=== PATIENT | male | born 1965 ===

== ENCOUNTER 2025-03-15 09:00 | Outpatient (AMB) | payer OTHER, SELFPAY ==
--- NOTE | 2025-03-15 09:28 | A.OFFVIS_ITS ---
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 His problem started in feet few years ago, about 7-10 years ago when he saw a automotive sales representative. During last year he started noticing sensitivity or discomfort in his fingers when he was using it to do things. Sometime it was in the thumb and index finger area and sometime in the 5th and 4th digit. There was no significant neck or back pain. His recent fasting blood sugar was 117. He denied any significant alcohol use. Many years ago he developed an odd feeling in his feet like he was walking on something or there was something in his sock but there was nothing there. [facility] Medical History (Updated 03/15/25 @ 09:41 by Grover Aguilera MD) Pain in left finger(s) Pain in right finger(s) Tingling of both feet Colon polyp Hypertension BPH (benign prostatic hyperplasia) Family History (Updated 03/10/25 @ 08:02 by Sandy Anderson SCHEDULING REPRESENTATIVE) Father Colon cancer Maternal Aunt Colon cancer Review of Systems Const Details: Constitutional:?No fever, chills, fatigue, weight loss, or night sweats. HEENT:?No headache, vision changes, hearing loss, nasal congestion, sore throat. Cardiovascular:?No chest pain, palpitations, orthopnea, PND, or leg swelling. Respiratory:?No cough, shortness of breath, wheezing, or hemoptysis. Gastrointestinal:?No nausea, vomiting, abdominal pain, diarrhea, or constipation. Genitourinary:?No dysuria, frequency, incontinence, or hematuria. Musculoskeletal:?No joint pain, stiffness, weakness, or muscle aches. Neurological:? Numbness tingling and discomfort in hands and feet Psychiatric:?No anxiety, depression, mood swings, sleep disturbance, or hallucinations. Endocrine:?No heat/cold intolerance, polydipsia, polyuria, or hair/skin changes. Hematologic/Lymphatic:?No easy bruising, bleeding, or lymphadenopathy. Integumentary (Skin):?No rash, lesions, itching, or color changes. Allergic/Immunologic:?No seasonal allergies, hives, or recurrent infections. Physical Exam Neuro Other: Mental Status: Alert and oriented to person, place, and time. Normal attention. Normal spontaneous speech, fluency, and comprehension. No obvious issues with mood and memory. Affect is appropriate. Cranial Nerves: CN II: Visual georges full to confrontation, visual acuity intact. CN III, IV, : Pupils equal, round, reactive to light and accommodation. Extraocular movements are normal. CN V: Facial sensation is normal. CN VII: Facial movements symmetrical. CN VIII: Hearing intact to bedside conversation is normal. CN IX, X: Palate elevates symmetrically. CN XI: Shoulder shrug and head turn symmetrical. CN XII: Tongue midline without atrophy or fasciculations. Motor: Bulk and tone normal in all extremities. No significant muscle weakness in arms and legs. No drift. Reflexes: Deep tendon reflexes 1+ and symmetric. Plantar response down-going bilaterally. Coordination: [id number]-[id number] and ogwv-on-cuvl testing normal. No dysmetria. Gait and Station: No obvious gait abnormality. No ataxia or instability. Sensory: Intact to light touch, pinprick, and vibration. Romberg is negative. Extrapyramidal: Full facial expressions and blinking. No rigidity. Movements are appropriate with no tremor or abnormality. Speech: Normal; no dysarthria or tremor. Assessment & Plan Assessment & Plan (1) Peripheral neuropathy: Comment: Labs in [facility] in January 2025: B12, IF OK. 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 Rec: a: EMG/NCS arms and a leg Orders: Orders NE nerve conduction velocity Today G62.9 - Polyneuropathy, unspecified NE electromyogram (EMG) Today G62.9 - Polyneuropathy, unspecified Coding Level of Care Code Tele New Pt Level 4 (97510) Diagnoses Peripheral polyneuropathy G62.9 Peripheral neuropathy type: polyneuropathy, unspecified
--- OUTSIDE RECORDS SUMMARY | 2025-03-15 09:40 | XMS_ITS | Clinical Summary ---
Author Organization [facility] Address [address] [place] [address] Care Team Providers Care Packer Fuser Name Role Phone Unavailable Primary Care Provider Unavailabl e Social History Tobacco Use Types Packs/Day Years Used Date Smoking Tobacco: Never Assessed Sex and Gender Information Value Date Recorded Sex Assigned at Not on file Gender Identity Not on file Sexual Orientation Not on file Job Start Date Occupation Industry Not on file Not on file Not on file Plan of Treatment Health Maintenance Due Date Last Done Comments Hepatitis C Screening 1964 COVID-19 Vaccine (#1) 06/01/1965 Depression Screening 1976 Preventative Health Evaluation 1982 DTap / Tdap / Td (1 - Tdap) 12/01/1983 Colon Cancer Screening (Colonoscopy) 2009 Shingrix-Zoster Vaccine (1 of 2) 2014 Influenza Vaccine (#1) 2025 RSV Adult > 60+ Yrs or Pregn ant (1 - 1-dose 75+ series) 12/01/2039 Hepatitis B Vaccines Aged Out No long er eligible based on patient's age to complete this topic Pneumococcal Vaccine Aged Out No long er eligible based on patient's age to complete this topic RSV Ped < 20 months Aged Out No longe r eligible based on patient's age to complete this topic
--- OUTSIDE RECORDS SUMMARY | 2025-03-15 09:40 | XMS_ITS | Encounter Summary ---
Author Organization [facility] Address [address] [place] [phone] Phone Care Team Providers Care Millroom Supervisor Name Role Phone Grover Gregory MD Primary Care Provider [phone] Encounter Details Date Type Department Care Team ([facility] st Contact Info) Description 03/21/2024 Procedure Pass OR Admitting Dept - Virtual Department [address] [place] [address] Social History Tobacco Use Types Packs/Day Years Used Date Smoking Tobacco: Never Smokeless Tobacco: Never Alcohol Use Standard Drinks/Week Comments Yes 2 (1 standard drink = 0.6 oz pur e alcohol) Education Answer Date Recorded Are you interested in more education? Not on emi e 12/14/2022 Are you concerned about learning? Not on file 12/14/2022 No 12/14/2022 No 12/14/2022 Transportation Answer Date Recorded Has the lack of transportati on kept you from medical appointments or from getting medications? No 03/20/2024 Digital Access Answer Date Recorded No 01/12/2023 No 01/12/2023 Reliable internet access at home? Not on file 01/12/2023 Device with a working camera? Not on file Intimate Partner Violence Answer Date R ecorded Are you denied basic needs s uch as food, clothing, or medical care? No 03/19/2024 In the past 12 months have y ou been in a relationship with a person who hurts, threatens, or tries to control you? No 03/19/2024 Are you denied basic needs s uch as food, clothing, or medical care? No 03/19/2024 In the past 12 months have y ou been in a relationship with a person who hurts, threatens, or tries to control you? No 03/19/2024 Sex and Gender Information Value Date Recorded Sex Assigned at Male 03/19/2024 4:06 PM EDT Legal Sex Male 10:35 AM EDT Gender Identity Male 03/19/2024 4:06 PM EDT Sexual Orientation Straight 03/19/2024 4: 06 PM EDT documented as of this encounter Plan of Treatment Not on file documented as of this encounter Visit Diagnoses Not on filedocumented in this encounter Care Teams Millroom Supervisor Relationship Specialty Start Date End Date Grover Gregory MD [address] [place] [address] PCP - General Internal Medicine 04/29/19 documented as of this encounter Additional Source Comments The information contained in this document represents components of the legal health record. It is not the complete legal health record.[facility]
--- OUTSIDE RECORDS SUMMARY | 2025-03-15 09:40 | XMS_ITS | Clinical Summary ---
Author Organization [facility] Facility Address [address] [place] [id number] Care Team Providers Care Wet Silk Hanger Name Role Phone Grover Gregory MD Primary Care Provider [phone] Allergies No known active allergies Medications cholecalciferol (VITAMIN D-3) 25 MCG (1000 UT) tablet Take 1,000 Units by mouth in the morning. Active Magnesium Ascorbate powder 1 (one) time each day Active finasteride (PROSCAR) 5 MG tablet Take 5 mg by mouth in the morning. Active escitalopram (Lexapro) 10 MG tablet Take 1 tablet (10 mg total) by mouth 1 (one) time each day 90 tablet 3 10/19/2021 Active Active Problems Problem Noted Date Diagnosed Date Elevated blood-pressure read ing without diagnosis of hypertension 10/19/2021 Abdominal pain 10/18/2021 Adult health examination 10/18/2021 Alopecia 10/18/2021 Body mass index 30+ - obesity 10/18/2021 Essential hypertension 10/18/2021 Generalized anxiety disorder 10/18/2021 Lower urinary tract symptoms due to benign prostatic hypertrophy 10/18/2021 Mixed hyperlipidemia 10/18/2021 Skin sensation disturbance 10/18/2021 Family History Medical History Relation Comments Colon cancer Father Diabetes Mother Relation Status Comments Father Mother Alive Social History Tobacco Use Types Packs/Day Years Used Date Smoking Tobacco: Never Smokeless Tobacco: Never Alcohol Use Standard Drinks/Week Comments Yes 0 (1 standard drink = 0.6 oz pur e alcohol) social drinker Sex and Gender Information Value Date Recorded Sex Assigned at Not on file Legal Sex Male 4:59 PM EST Gender Identity Not on file Sexual Orientation Not on file Last Filed Vital Signs Vital Sign Reading Time Taken Comments Blood Pressure 130/78 10/19/2021 3:49 PM EST Pulse 76 10/19/2021 3:49 PM EST Temperature - - Respiratory Rate - - Oxygen Saturation 96% 10/19/2021 3:49 PM EST Inhaled Oxygen Concentration - - Weight 74.8 kg (165 lb) 10/19/2021 3:49 PM EST Height 175.3 cm (5' 9 ) 10/19/2021 3:49 PM EST Body Mass Index 24.37 10/19/2021 3:49 PM EST Plan of Treatment Health Maintenance Due Date Last Done Comments Colorectal Cancer Screening: Annual FOBT 2013 Colorectal Cancer Screening: Colonoscopy 2013 Colorectal Cancer Screening: Sigmoidoscopy 2013 Pneumococcal Vaccine: 50+ Ye ars (1 of 1 - PCV) 2014 Influenza Vaccine (#1) 2025 Hepatitis B Vaccine Aged Out No longe r eligible based on patient's age to complete this topic Insurance [facility] Care Teams Wet Silk Hanger Relationship Specialty Start Date End Date Grover Gregory MD [address] [place] [id number] PCP - General Internal Medicine 10/29/21
--- OUTSIDE RECORDS SUMMARY | 2025-03-15 09:40 | XMS_ITS ---
Author Name [facility] Organization Unknown Care Team Organization Name Specialty Phone Email [facility] 12/24/2022 024
--- OUTSIDE RECORDS SUMMARY | 2025-03-15 09:40 | XMS_ITS | Patient Health Record ---
Author Organization [facility] Address [address], [place] [id number] Care Team Providers Care Painter Supervisor Name Role Phone NAM RUIZ Primary Care Provider EFRA OCASIO RESULTS Component Value Reference Range Notes Prothrombin Time (PT)-[id number] Reviewed date:09/02/2024 08:37:44 AM Interpretation: Performing Lab:[facility], [facility], Phone - [phone], Director - Karel Notes/Report: INR 1.0 0.9-1.2 Reference interval is for non-anticoagulated patients. . Suggested INR therapeutic range for Vitamin K antagonist therapy: Standard Dose (moderate intensity therapeutic range): 2.0 - 3.0 Higher intensity therapeutic range 2.5 - 3.5 Prothrombin Time 10.9 9.1-12.0 sec EKG Reviewed date:01/27/2025 04:22:23 PM Interpretation: Performing Lab: Notes/Report: ECGDiastolicBP ECGHr ECGPRInterval ECGPWaveAxis ECGQRSDuration ECGQrsWaveAxis ECGQTcInterval ECGQTInterval ECGSystolicBP ECGTWaveAxis RR_DiastolicBP RR_MaxRRInterval RR_MeanHR RR_MeanRRInterval RR_MinRRInterval RR_NumBeats RR_NumNormalBeats RR_SystolicBP Hemoglobin [id number] Reviewed date:12/16/2024 01:56:15 PM Interpretation: Performing Lab:[facility], [facility] [place], Phone - [phone], Director - Jodry Notes/Report: Hemoglobin A1c 5.6 4.8-5.6 % . Prediabetes: 5.7 - 6.4 Diabetes: >6.4 Glycemic control for adults with diabetes: <7.0 Vitamin [id number] Reviewed date:02/11/2025 08:19:05 AM Interpretation: Performing Lab:[address], Phone - [phone], Karel Notes/Report: Vitamin B12 >2000 232-1245 pg/mL Lyme Disease Serology w/Refl ex-[id number] Reviewed date:03/08/2025 08:09:48 AM Interpretation: Performing Lab:[address], Phone - [phone], [facility]Report: Lyme Total Antibody ALEXIS Negative Negative Lyme antibodies not detected. Reflex testing is not indicated. No laboratory evidence of infection with B. burgdorferi (Lyme disease). Negative results may occur in patients recently infected (less than or equal to 14 days) with B. burgdorferi. If recent infection is suspected, repeat testing on a new sample collected in 7 to 14 days is recommended. Lyme, Line Blot, Serum-[id number] 0 Reviewed date:03/07/2025 03:19:55 PM Interpretation: Performing Lab:[facility], [address] [place] [address], Phone - [phone], [facility]/Report: Lyme IgG Line Blot Interp. Negative Negative IgG P93 Ab. Absent IgG P66 Ab. Absent IgG P58 Ab. Absent IgG P45 Ab. Absent IgG P41 Ab. Absent IgG P39 Ab. Absent IgG P30 Ab. Absent IgG P28 Ab. Absent IgG P23 Ab. Absent IgG P18 Ab. Absent Lyme IgM Line Blot Interp. Negative Negative Please Note: Lyme immunoblot alone is not recommended for the diagnosis of Lyme disease. Current guidelines recommend the use of a two-tiered approach to Lyme serology testing to improve the sensitivity and specificity of testing. [facility] offers test code 164338 Lyme Disease Serology with Reflex to aid in the diagnosis of Lyme Disease. IgM P41 Ab. Absent IgM P39 Ab. Present IgM P23 Ab. Absent Additional Information: Per CDC criteria, the Lyme IgG Immunoblot is interpreted as positive if IgG-class antibodies are detected to 5 or more B. burgdorferi proteins, and the Lyme IgM Immunoblot is interpreted as positive if IgM-class antibodies are detected to 2 or more B. burgdorferi proteins. Immunoblot patterns not meeting these criteria should not be interpreted as positive. Epitopes from certain B. burgdorferi proteins (e.g., p41) are conserved across other bacteria, which may lead to the detection of IgM-and/or IgG class antibodies on the Lyme disease immunoblots in patients without Lyme disease. Immunoblot should only be ordered on specimens that are positive or equivocal by an FDA-licensed Lyme disease antibody screening test (e.g., EIA). Results of the Lyme IgM immunoblot should not be considered in patients with 30 or more days of symptoms. Prostate-Specific Ag (PSA)-0 [id number] Reviewed date:09/02/2024 08:38:42 AM Interpretation: Performing Lab:[facility], [address] [place] [address], Phone - [phone], Director - [facility] Notes/Report: Prostate Specific Ag 0.1 0.0-4.0 ng/mL Walter ECLIA methodology. . According to the [employer] [employer], Serum PSA should decrease and remain at undetectable levels after radical prostatectomy. The AUA defines biochemical recurrence as an initial PSA value 0.2 ng/mL or greater followed by a subsequent confirmatory PSA value 0.2 ng/mL or greater. Values obtained with different assay methods or kits cannot be used interchangeably. Results cannot be interpreted as absolute evidence of the presence or absence of malignant disease. Protein Electrophorese,Serum -[id number] Reviewed date:02/16/2025 06:04:07 PM Interpretation: Performing Lab:[facility], [address] [facility], [place], Phone - [phone], Director - MDJodry Notes/Report: Protein, Total 7.1 6.0-8.5 g/dL Albumin 4.1 2.9-4.4 g/dL Yspjn-2-Elsekxjp 0.2 0.0-0.4 g/dL Xynky-4-Fiempjvu 0.8 0.4-1.0 g/dL Beta Globulin 1.1 0.7-1.3 g/dL Gamma Globulin 0.9 0.4-1.8 g/dL M-Ángel Not Observed Not Observed g/dL Globulin, Total 3.0 2.2-3.9 g/dL A/G Ratio 1.4 0.7-1.7 Please note: Protein electrophoresis scan will follow via computer, mail, or proposal rep delivery. PDF . CBC, Platelet, w/o Different ial-[id number] Reviewed date:09/02/2024 08:38:27 AM Interpretation: Performing Lab:[facility] [place], [address] [facility], [place], Phone - [phone], Director - ARKelsie Notes/Report: WBC 5.3 3.4-10.8 x10E3/uL RBC 5.34 4.14-5.80 x10E6/uL Hemoglobin 16.2 13.0-17.7 g/dL Hematocrit 47.2 37.5-51.0 % MCV 88 79-97 fL MCH 30.3 26.6-33.0 pg MCHC 34.3 31.5-35.7 g/dL RDW 12.9 11.6-15.4 % Platelets 247 150-450 x10E3/uL NRBC Comp. Metabolic Panel ([id number] Reviewed date:09/02/2024 01:34:05 PM Interpretation: Performing Lab:[facility] [place], [address] [facility], [place], Phone - [phone], [facility] - [facility] Notes/Report: Glucose 117 70-99 mg/dL BUN 19 6-24 mg/dL Creatinine 1.03 0.76-1.27 mg/dL eGFR 84 >59 mL/min/1.73 BUN/Creatinine Ratio 18 9-20 Sodium 138 134-144 mmol/L Potassium 4.8 3.5-5.2 mmol/L Chloride 101 96-106 mmol/L Anion Gap 16.0 10.0-18.0 mmol/L Carbon Dioxide, Total 21 20-29 mmol/L Calcium 9.9 8.7-10.2 mg/dL Protein, Total 7.4 6.0-8.5 g/dL Albumin 5.2 3.8-4.9 g/dL Globulin, Total 2.2 1.5-4.5 g/dL Bilirubin, Total 0.6 0.0-1.2 mg/dL Alkaline Phosphatase 64 44-121 IU/L AST (SGOT) 32 0-40 IU/L ALT (SGPT) 40 0-44 IU/L Lipid Panel With LDL/HDL Rat [id number] Reviewed date:09/02/2024 08:39:10 AM Interpretation: Performing Lab:[facility], [address], [place], Phone - [phone], Director - Karel Notes/Report: Cholesterol, Total 225 100-199 mg/dL Triglycerides 77 0-149 mg/dL HDL Cholesterol 60 >39 mg/dL VLDL Cholesterol Attila 13 5-40 mg/dL LDL Chol Calc ([facility]) 152 0-99 mg/dL LDL Calc Comment: LDL/HDL Ratio 2.5 0.0-3.6 ratio LDL/HDL Ratio Men Women 1/2 Avg.Risk 1.0 1.5 Avg.Risk 3.6 3.2 2X Avg.Risk 6.2 5.0 3X Avg.Risk 8.0 6.1 REASON FOR REFERRAL Reason 59 yr old male with chronic tingling feet and recent shock pain fingertips bilateral, Diagnosis 1 Tingling of both fee t (R20.2) Diagnosis 2 Pain in right finger (s) (M79.644) Diagnosis 3 Pain in left finger( s) (M79.645) Referral Organization [facility] Referring Provider First Name NAM Referring Provider Last Name SARA Referring Provider Speciality Internal M edicine Referred Provider HILL AGARWAL Referred Provider Specialty Neurology General Notes NAM RUIZ 2024 11:11:34 AM > , Georgette FUNEZ Referrals 02/04/2025 04:24:57 PM > per 01/27/25 visit > he will use referral copy to neurology to call for consult appt , MEDICAL referral and notes have also been faxed to Dr. Veloz at [phone], Georgette FUNEZ Referrals 02/10/2025 09:29:04 AM > appointment details have been received from , the patient has been scheduled for 03/25/25 at 1:50, the patient has not been notifed, specialist appoiontment card has been mailed Referral Priority Routine Referral Appointment Date 03/25/2025 Reason 59 yr old male with recurrent lightheadedness, fluctuating blood pressure , r/o cardiovascualar disease Diagnosis 1 Lightheadedness (R42 ) Diagnosis 2 Fluctuating blood pr essure (I99.8) Referral Organization [facility] Referring Provider First Name NAM Referring Provider Last Name SARA Referring Provider Speciality Internal M edicine Referred Provider Specialty Cardiovascul ar Disease General Notes NAM RUIZ 2024 11:23:42 AM > [facility], 59 yr old male with recurrent lightheadedness, fluctuating blood pressure , r/o cardiovascualar disease , DEE DEE,Georgette K Referrals 02/04/2025 04:19:39 PM > per 01/27/25 visit > he will use referral copy to cardiology to call for consult appt , medical referral and notes have also been faxed to [facility] at [phone] Referral Priority Routine MEDICATIONS Medication SIG (Take, Route, Frequency, Duration) Notes Start Date End Date Status amLODIPine Besylate 5 MG 1 tablet Orally Once a day for 30 day(s) 03/03/2025 Active amLODIPine Besylate 5 MG 1 tablet Orally Once a day for 30 day(s) 03/03/2025 Active SOCIAL HISTORY Tobacco Use: Social History Observation Description Date Details (start date - stop date) Never Smoker NA - NA Sex Assigned At : Social History Observation Description Sex Assigned At Unknown Smoking Question Answer Notes Are you a: never smoker PROBLEMS Problem Type ICD Code Onset Dates Problem Status W/U Status Risk SNOMED Code Notes Problem Enlarged prostate (N40.0) Active confirmed 654814696 Problem Hepatic steatosis (K76.0) Active confirmed 988078386 Problem Hand tingling (R20.2) Active confirmed 616090646 Problem Atherosclerosis (I70.90) Active confirmed 44506499 Problem Adenomatous polyp of colon, unspecified part of colon (D12.6) Active confirmed 372035384 Problem Well-controlled hypertension (I10) Active confirmed 072306640 VITAL SIGNS Blood pressure diastolic 72 mm Hg 01/27/2025 Height 68.0 in 01/27/2025 Blood pressure systolic 126 mm Hg 01/27/2025 Weight 166.2 lbs 01/27/2025 BMI 25.27 kg/m2 01/27/2025 Encounters Encounter Location Date Provider Diagnosis [facility] [address] [place] [address] 08/26/2024 NAM RUIZ [facility] [address] [place] [address] 09/01/2024 NAM RUIZ Hepatic steatosis K76.0 ; Screening for deficiency anemia Z13.0 ; Well-controlled hypertension I10 ; History of epistaxis Z87.898 and Prostate cancer screening Z12.5 [place] [id number] 09/02/2024 NAM RUIZ Hepatic steatosis K76.0 and Elevated glucose R73.09 [place] [id number] 09/28/2024 NAM RUIZ [place] [id number] 09/30/2024 NAM RUIZ [place] [address] 12/17/2024 NAM RUIZ [place] [id number] 01/27/2025 NAM RUIZ Well-controlled hypertension I10 ; Tingling of both feet R20.2 ; Lightheadedness R42 ; Pain in right finger(s) M79.644 and Pain in left finger(s) M79.645 [place] [id number] 02/17/2025 EFRA OLINDAACCO Tingling of both feet R20.2 and Hand tingling R20.2 [facility] [address] [place], [place] [phone] 02/24/2025 NAM RUIZ [place] [id number] 02/25/2025 NAM RUIZ [place] [phone] 03/03/2025 NAM RUIZ Well-controlled hypertension I10 [address] [address] 03/03/2025 NAM RUIZ Well-controlled hypertension I10 ASSESSMENTS Encounter Date Diagnosis Assessment Notes Treatment Notes Treatment Clinical Notes Section Notes 09/01/2024 Hepatic steatosis (ICD-10 - K76.0) discussed reduced simple carbs ,processed foods 09/01/2024 Screening for deficiency anemia (ICD-10 - Z13.0) 09/02/2024 Elevated glucose (ICD-10 - R73.09) 09/02/2024 Hepatic steatosis (ICD-10 - K76.0) 01/27/2025 Tingling of both feet (ICD-10 - R20.2) he will use referral copy to neurology to call for consult appt encounter > 30 minutes 01/27/2025 Well-controlled hypertension (ICD-10 - I10) encounter > 30 minutes 02/17/2025 Hand tingling (ICD-10 - R20.2) 02/17/2025 Tingling of both feet (ICD-10 - R20.2) 03/03/2025 Well-controlled hypertension (ICD-10 - I10) 03/03/2025 Well-controlled hypertension (ICD-10 - I10) 09/01/2024 Well-controlled hypertension (ICD-10 - I10) 01/27/2025 Lightheadedness (ICD-10 - R42) he will use referral copy to cardiology to call for consult appt encounter > 30 minutes 09/01/2024 History of epistaxis (ICD-10 - Z87.898) 01/27/2025 Pain in right finger(s) (ICD-10 - M79.644) encounter > 30 minutes 09/01/2024 Prostate cancer screening (ICD-10 - Z12.5) 01/27/2025 Pain in left finger(s) (ICD-10 - M79.645) encounter > 30 minutes 09/01/2024 Other he continues f/u urology , 6 mos PLAN OF TREATMENT Next Appt Details Provider Name:NAM RUIZ, 04/29/2025 10:40:00 AM, [address] [place], [address], Insurance Providers Payer Name Payer Address Payer Phone Subscriber Number Group Number Insured Name Patient Relationship to Insured Coverage Start Date Coverage End Date [facility] [address] [facility] [place] [id number] LETI RIOS Self - patient is the insured MEDICAL (GENERAL) HISTORY Medical History History ICD Code kidney stones Mar 2024 high blood pressure BPH colon polyp Surgical History Surgery Date(Month/Year)
== END 2025-03-15 09:53 | disposition home or self-care (01) ==
LOC: HO.HSM 09:05
PROVIDERS: PCP Internal Medicine; Visit Provider Psychiatry & Neurology Neurology
DX: G62.9 Polyneuropathy, unspecified (principal)
CPT/HCPCS: 99204

== ENCOUNTER 2025-03-24 08:54 | Outpatient (REF) | payer OTHER, SELFPAY ==
--- NOTE | 2025-03-24 09:00 | EMG_ITS ---
Bilateral median and ulnar motor and sensory studies were performed bilateral radial sensory and median and lateral antecubital brachial sensory studies were performed. Right peroneal and tibial motor studies were performed right superficial peroneal and sural sensory studies were performed tibial H-reflex was obtained and needle examination was performed in upper and lower paraspinals. Impression: This study of both upper extremities and right lower, did not reveal any significant abnormality. MTDD
--- OUTSIDE RECORDS SUMMARY | 2025-03-24 09:06 | XMS_ITS | Encounter Summary ---
Author Organization [facility] Address [address] [place] [id number] Phone Care Team Providers Care Change Coordinator Name Role Phone Grover Gregory MD Primary Care Provider [phone] Encounter Details Date Type Department Care Team ([facility] st Contact Info) Description 03/21/2024 Procedure Pass OR Admitting Dept - Virtual Department [address] [place] [address] Social History Tobacco Use Types Packs/Day Years [...] on filedocumented in this encounter Care Teams Change Coordinator Relationship Specialty Start Date End Date Grover Gregory MD [address] [place] [address] PCP - General Internal Medicine 04/29/19 documented as of this encounter Additional Source Comments The information contained in this document represents components of the legal health record. It is not the complete legal health record.[facility]
--- OUTSIDE RECORDS SUMMARY | 2025-03-24 09:07 | XMS_ITS | Clinical Summary ---
Author Organization [facility] Address [address] [place] [address] Care Team Providers Care Catcher Filter Tip Name Role Phone Unavailable Primary Care Provider [...]
--- OUTSIDE RECORDS SUMMARY | 2025-03-24 09:07 | XMS_ITS | Clinical Summary ---
Author Organization [facility] Facility Address [address] [address] Care Team Providers Care Plant Operations Engineer Name Role Phone Grover Gregory MD Primary Care Provider [phone] Allergies No known active allergies Medications cholecalciferol [...] patient's age to complete this topic Insurance [facility] Care Teams Plant Operations Engineer Relationship Specialty Start Date End Date Grover Gregory MD PCP - General Internal Medicine 10/29/21
--- OUTSIDE RECORDS SUMMARY | 2025-03-24 09:07 | XMS_ITS | Patient Health Record ---
Author Organization [facility] Address [address] [place], [place] [id number] Care Team Providers Care Lead Software Engineer Name Role Phone NAM RUIZ Primary Care Provider [phone] EFRA OCASIO RESULTS Component Value Reference Range Notes Prothrombin Time (PT)-[id number] Reviewed date:09/02/2024 08:37:44 AM Interpretation: Performing Lab:[facility], [facility], Phone - [phone], Director - Karel Notes/Report: INR 1.0 0.9-1.2 [...] RR_MeanHR RR_MeanRRInterval RR_MinRRInterval RR_NumBeats RR_NumNormalBeats RR_SystolicBP Hemoglobin [id number] Reviewed date:12/16/2024 01:56:15 PM Interpretation: Performing Lab:[facility], [facility] [place], Phone - [phone], Director - Jodry Notes/Report: Hemoglobin A1c 5.6 4.8-5.6 % . Prediabetes: 5.7 - 6.4 Diabetes: >6.4 Glycemic control for adults with diabetes: <7.0 Vitamin [id number] Reviewed date:02/11/2025 08:19:05 AM Interpretation: Performing Lab:[address], Phone - [phone], Karel Notes/Report: Vitamin B12 >2000 232-1245 pg/mL Lyme Disease Serology w/Refl ex-[id number] Reviewed date:03/08/2025 08:09:48 AM Interpretation: Performing Lab:[address], Phone - [phone], [facility] Notes/Report: Lyme Total Antibody ALEXIS Negative Negative [...] 14 days is recommended. Lyme, Line Blot, Serum-52352 0 Reviewed date:03/07/2025 03:19:55 PM Interpretation: Performing Lab:[facility], [address] [place] [address], Phone - [phone], [facility] Notes/Report: Lyme IgG Line Blot Interp. Negative [...] improve the sensitivity and specificity of testing. [facility] [place] offers test code 390322 Lyme Disease Serology with Reflex to aid [...] more days of symptoms. Prostate-Specific Ag (PSA)-0 95524 Reviewed date:09/02/2024 08:38:42 AM Interpretation: Performing Lab:[facility], [address] [place] [address], Phone - [phone], Director - [facility] Notes/Report: Prostate Specific Ag 0.1 0.0-4.0 ng/mL Walter ECLIA methodology. . According to the [employer], Serum PSA should decrease and [...] or absence of malignant disease. Protein Electrophorese,Serum -[id number] Reviewed date:02/16/2025 06:04:07 PM Interpretation: Performing Lab:[facility], [address] [facility], [place], Phone - [phone], Director - MDJodry Notes/Report: Protein, Total 7.1 6.0-8.5 g/dL Albumin 4.1 2.9-4.4 g/dL Fochi-6-Fleysyms 0.2 0.0-0.4 g/dL Sqsyv-6-Pdenfdhd 0.8 0.4-1.0 g/dL Beta Globulin 1.1 0.7-1.3 g/dL Gamma Globulin 0.9 0.4-1.8 g/dL M-Ángel Not Observed Not Observed g/dL Globulin, Total 3.0 2.2-3.9 g/dL A/G Ratio 1.4 0.7-1.7 Please note: Protein electrophoresis scan will follow via computer, mail, or elevator inspector delivery. PDF . CBC, Platelet, w/o Different ial-[id number] Reviewed date:09/02/2024 08:38:27 AM Interpretation: Performing Lab:[facility] [place], [address] [facility], [place], Phone - [phone], Director - WAKelsie Notes/Report: WBC 5.3 3.4-10.8 x10E3/uL RBC 5.34 4.14-5.80 x10E6/uL Hemoglobin 16.2 13.0-17.7 g/dL Hematocrit 47.2 37.5-51.0 % MCV 88 79-97 fL MCH 30.3 26.6-33.0 pg MCHC 34.3 31.5-35.7 g/dL RDW 12.9 11.6-15.4 % Platelets 247 150-450 x10E3/uL NRBC Comp. Metabolic Panel ([id number] Reviewed date:09/02/2024 01:34:05 PM Interpretation: Performing Lab:[facility] [place], [address] [facility], [place], Phone - [phone], Director - [facility] Notes/Report: Glucose 117 70-99 mg/dL BUN 19 [...] 0-44 IU/L Lipid Panel With LDL/HDL Rat io-[id number] Reviewed date:09/02/2024 08:39:10 AM Interpretation: Performing Lab:[facility], [address], [place], Phone - [phone], Director - Karel Notes/Report: Cholesterol, Total 225 100-199 mg/dL Triglycerides 77 0-149 mg/dL HDL Cholesterol 60 >39 mg/dL VLDL Cholesterol Attila 13 5-40 mg/dL LDL Chol Calc ([facility]) 152 0-99 mg/dL LDL Calc Comment: LDL/HDL [...] in left finger( s) (M79.645) Referral Organization [facility] rose Referring Provider First Name NAM Referring [...] also been faxed to Dr. Veloz at [phone], Georgette FUNEZ Referrals 02/10/2025 09:29:04 AM > [...] Fluctuating blood pr essure (I99.8) Referral Organization [facility] rose Referring Provider First Name NAM Referring Provider Last Name SARA Referring Provider Speciality Internal M edicine Referred Provider Specialty Cardiovascul ar Disease General Notes NAM RUIZ 2024 11:23:42 AM > [facility] , [facility], 59 yr old male with recurrent lightheadedness, fluctuating blood pressure , r/o cardiovascualar disease , DEE DEE,Georgette K Referrals 02/04/2025 04:19:39 PM > per 01/27/25 visit > he will use referral copy to cardiology to call for consult appt , medical referral and notes have also been faxed to [facility] at [phone] Referral Priority Routine MEDICATIONS Medication SIG (Take, [...] Notes Problem Enlarged prostate (N40.0) Active confirmed 355204949 Problem Hepatic steatosis (K76.0) Active confirmed 402686932 Problem Hand tingling (R20.2) Active confirmed 927446762 Problem Atherosclerosis (I70.90) Active confirmed 16512094 Problem Peripheral polyneuropathy (G62.9) Active confirmed 58161014 Problem Adenomatous polyp of colon, unspecified part of colon (D12.6) Active confirmed 846434173 Problem Well-controlled hypertension (I10) Active confirmed 214673993 VITAL SIGNS Blood pressure diastolic 72 mm Hg 01/27/2025 Height 68.0 in 01/27/2025 Blood pressure systolic 126 mm Hg 01/27/2025 Weight 166.2 lbs 01/27/2025 BMI 25.27 kg/m2 01/27/2025 Encounters Encounter Location Date Provider Diagnosis [facility] [address] [place] [address] 08/26/2024 NAM RUIZ [facility] [address] [place] [address] 09/01/2024 NAM RUIZ Hepatic steatosis K76.0 ; Screening for deficiency anemia Z13.0 ; Well-controlled hypertension I10 ; History of epistaxis Z87.898 and Prostate cancer screening Z12.[address] [address] 09/02/2024 NAM RUIZ Hepatic steatosis K76.0 and Elevated glucose R73.[address] [address] 09/28/2024 NAM RUIZ [address] [address] 09/30/2024 NAM RUIZ [place] [id number] 12/17/2024 NAM RUIZ [address] [address] 01/27/2025 NAM RUIZ Well-controlled hypertension I10 ; Tingling of both feet R20.2 ; Lightheadedness R42 ; Pain in right finger(s) M79.644 and Pain in left finger(s) M79.[address] [address] 02/17/2025 EFRA PRAKASHACCO Tingling of both feet R20.2 and Hand tingling R20.2 [facility] [address] [place] [address] 02/24/2025 NAM RUIZ [address] [address] 02/25/2025 NAM RUIZ [address] [address] 03/03/2025 NAM RUIZ Well-controlled hypertension I10 [address] [address] 03/03/2025 NAM RUIZ Well-controlled hypertension I10 [address] [address] 03/23/2025 NAM RUIZ Elevated glucose R73.09 ; Hepatic steatosis K76.0 and Peripheral polyneuropathy G62.9 ASSESSMENTS Encounter Date Diagnosis Assessment Notes Treatment [...] I10) 03/03/2025 Well-controlled hypertension (ICD-10 - I10) 03/23/2025 Elevated glucose (ICD-10 - R73.09) 03/23/2025 Hepatic steatosis (ICD-10 - K76.0) 09/01/2024 Well-controlled hypertension (ICD-10 - I10) 01/27/2025 [...] (ICD-10 - M79.645) encounter > 30 minutes 03/23/2025 Peripheral polyneuropathy (ICD-10 - G62.9) 09/01/2024 Other he continues f/u urology , 6 mos PLAN OF TREATMENT Future Test Test Name Order Date Glucose-[id number] 03/23/2025 Iron and TIBC-998347 03/23/2025 Hemoglobin Z4i-023901 03/23/2025 Insulin-425706 03/23/2025 Ferritin-966896 03/23/2025 Lead, Blood (Adult)-174118 03/23/2025 Insulin Antibodies-158123 03/23/2025 ROYCE-65 Autoantibody-446528 03/23/2025 Hepatic Function Panel (7)-[id number] 2024 Next Appt Details Provider Name:NAM RUIZ, 04/29/2025 10:40:00 AM, [address] [place] [address], [phone], Insurance Providers Payer Name Payer Address Payer Phone Subscriber Number Group Number Insured Name Patient Relationship to Insured Coverage Start Date Coverage End Date [facility] [address] [place] [address] [phone] [id number] LETI RIOS Self - patient is the insured 5 MEDICAL (GENERAL) HISTORY Medical History History ICD Code kidney stones Mar 2024 high blood pressure BPH colon polyp Surgical History Surgery Date(Month/Year)
== END 2025-03-24 08:55 | disposition home or self-care (01) ==
LOC: HO.NEURO 08:54
PROVIDERS: Visit Provider Psychiatry & Neurology Neurology
DX: G62.9 Polyneuropathy, unspecified (principal)
CPT/HCPCS: 95886; 95913

== ENCOUNTER → 2025-03-24 09:00 | Outpatient (BNV) | payer OTHER, SELFPAY | PROVIDERS: Visit Provider Psychiatry & Neurology Neurology | DX: G62.9 Polyneuropathy, unspecified (principal) | CPT/HCPCS: 95886; 95913 ==

== ENCOUNTER 2025-04-05 09:45 | Outpatient (AMB) | payer OTHER, SELFPAY ==
--- NOTE | 2025-04-05 09:48 | A.OFFVIS_ITS ---
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 His labs and EMG/NCS of arms and legs in 2024 did not reveal any significant abnormality. [facility] Medical History (Updated 04/05/25 @ 09:51 by Grover Aguilera MD) Pain in left finger(s) Pain in right finger(s) Tingling of both feet Colon polyp Hypertension BPH (benign prostatic hyperplasia) Family History (Updated 03/10/25 @ 08:02 by Sandy Anderson CMA) Father Colon cancer Maternal Aunt Colon cancer Assessment & Plan Assessment & Plan (1) Peripheral neuropathy: Comment: Labs in [facility] in January 2025: B12, IF OK. A1c 5.6, FBS 117, LFTs ok, CBC ok, EMG/NCS at off 4 limbs in 2024: WNL Code(s): G62.9 - Polyneuropathy, unspecified Category: Medical Qualifiers: Peripheral neuropathy type: polyneuropathy, unspecified Qualified Code (s): G62.9 - Polyneuropathy, unspecified Plan Impression: Non specific symptoms of paresthesia and muscle aches with anxiety Rec: a: Labs to r/o a metabolic cause b: PRN alprazolam c: May consider a rheumatology consult, especially if labs are abnormal Orders: Orders Creatine Kinase Total Today G62.9 - Polyneuropathy, unspecified CRP High Sensitivity Today G62.9 - Polyneuropathy, unspecified Rheumatoid Factor Today G62.9 - Polyneuropathy, unspecified Erythrocyte Sedimentation Rate Today G62.9 - Polyneuropathy, unspecified ELO Reflex Titer and Pattern Today G62.9 - Polyneuropathy, unspecified Lyme IgG/IgM w/reflex to WB Today G62.9 - Polyneuropathy, unspecified Uric Acid Today G62.9 - Polyneuropathy, unspecified Anti DNA DS Antibody Today G62.9 - Polyneuropathy, unspecified Medications: New alprazolam 0.5 mg PO DAILY PRN 30 tabs 0RF anxiety Coding Level of Care Code Tele Est Pt Level 4 (55975) Diagnoses Peripheral polyneuropathy G62.9 Peripheral neuropathy type: polyneuropathy, unspecified
--- OUTSIDE RECORDS SUMMARY | 2025-04-05 10:26 | XMS_ITS | Clinical Summary ---
Author Organization [facility] Address [address] [address] Care Team Providers Care Cosmetics Machine Operator Name Role Phone Grover Gregory MD Primary Care Provider [phone] Allergies No known active allergies Medications cholecalciferol [...] patient's age to complete this topic Insurance [facility] Care Teams Cosmetics Machine Operator Relationship Specialty Start Date End Date Grover Gregory MD [address] [place] [address] PCP - General Internal Medicine 10/29/21
--- OUTSIDE RECORDS SUMMARY | 2025-04-05 10:26 | XMS_ITS | Encounter Summary ---
Author Organization [facility] Address [address] [place] [address] Phone Care Team Providers Care Basketball Player Name Role Phone Grover Gregory MD Primary Care Provider [phone] Encounter Details Date Type Department Care Team ([facility] st Contact Info) Description 03/21/2024 Procedure Pass OR Admitting Dept - Virtual Department [address] [place] [address] Social History Tobacco Use Types Packs/Day Years [...] on filedocumented in this encounter Care Teams Basketball Player Relationship Specialty Start Date End Date Grover Gregory MD [address] [address] PCP - General Internal Medicine 04/29/19 documented as of this encounter Additional Source Comments The information contained in this document represents components of the legal health record. It is not the complete legal health record.[facility]
--- OUTSIDE RECORDS SUMMARY | 2025-04-05 10:26 | XMS_ITS | Patient Health Record ---
Author Organization [facility] Address [address] [place], [place] [phone] Care Team Providers Care Warp Coiler Name Role Phone NAM RUIZ Primary Care Provider [phone] EFRA OCASIO Unavailable REASON FOR REFERRAL Reason 59 yr old male with chronic tingling feet and recent shock pain fingertips bilateral, Diagnosis 1 Tingling of both fee t (R20.2) Diagnosis 2 Pain in right finger (s) (M79.644) Diagnosis 3 Pain in left finger( s) (M79.645) Referral Organization [facility] Referring Provider First Name NAM Referring Provider [...] also been faxed to Dr. Veloz at [phone], Georgette FUNEZ Referrals 02/10/2025 09:29:04 AM > [...] Fluctuating blood pr essure (I99.8) Referral Organization [facility] Et3arrafnicko Referring Provider First Name NAM Referring Provider Last Name SARA Referring Provider Speciality Internal M edicine Referred Provider Specialty Cardiovascul ar Disease General Notes NAM RUIZ 2024 11:23:42 AM > Tr[facility]in [facility] , [facility], 59 yr old male with recurrent lightheadedness, fluctuating blood pressure , r/o cardiovascualar disease , Georgette FUNEZ Referrals 02/04/2025 04:19:39 PM > per 01/27/25 visit > he will use referral copy to cardiology to call for consult appt , medical referral and notes have also been faxed to [facility] at [phone] Referral Priority Routine Reason (04/05/25 Wtg appt) [facility] > 59 yr old male with peripheral neuropathy and high ferritin, please see possible hemochromatosis Diagnosis 1 Elevated ferritin (R 79.89) Diagnosis 2 Peripheral polyneuro sergio (G62.9) Referral Organization [facility] rose Referring Provider First Name NAM Referring Provider Last Name SARA Referring Provider Speciality Internal M edicine Referred Organization [facility] Referred Provider Specialty Hematology/O ncology General Notes Lisa FUNEZ Support Services [employer] 03/25/2025 04:26:17 PM > Faxed to [facility] with note. Labs to follow via fax right after., Kaity FUNEZ [place] 04/02/2025 03:32:32 PM > pt requested be sent to [facility]. Faxed URGENT to [phone], Georgette FUNEZ Referrals 04/05/2025 09:32:44 AM > noted Referral Priority Urgent MEDICATIONS Medication SIG (Take, Route, Frequency, Duration) [...] Notes Problem Enlarged prostate (N40.0) Active confirmed 739113477 Problem Hepatic steatosis (K76.0) Active confirmed 262395667 Problem Hand tingling (R20.2) Active confirmed 646468835 Problem Atherosclerosis (I70.90) Active confirmed 29620919 Problem Peripheral polyneuropathy (G62.9) Active confirmed 09351655 Problem Adenomatous polyp of colon, unspecified part of colon (D12.6) Active confirmed 439487292 Problem Well-controlled hypertension (I10) Active confirmed 856944261 VITAL SIGNS Blood pressure diastolic 72 mm Hg 01/27/2025 Height 68.0 in 01/27/2025 Blood pressure systolic 126 mm Hg 01/27/2025 Weight 166.2 lbs 01/27/2025 BMI 25.27 kg/m2 01/27/2025 Encounters Encounter Location Date Provider Diagnosis [place] [id number] 08/26/2024 NAM RUIZ [place] [phone] 09/01/2024 NAM RUIZ Hepatic steatosis K76.0 ; Screening for deficiency anemia Z13.0 ; Well-controlled hypertension I10 ; History of epistaxis Z87.898 and Prostate cancer screening Z12.5 [place] [phone] 09/02/2024 NAM RUIZ Hepatic steatosis K76.0 and Elevated glucose R73.09 [place] [id number] 09/28/2024 NAM RUIZ [place] [id number] 09/30/2024 NAM RUIZ [place] [id number] 12/17/2024 NAM RUIZ [place] [phone] 01/27/2025 NAM RUIZ Well-controlled hypertension I10 ; Tingling of both feet R20.2 ; Lightheadedness R42 ; Pain in right finger(s) M79.644 and Pain in left finger(s) M79.645 [facility] [address] [place] [address] 02/17/2025 EFRA PRAKASHACCO Tingling of both feet R20.2 and Hand tingling R20.2 [facility] [address] [place] [address] 02/24/2025 NAM RUIZ [facility] [address] [place] [address] 02/25/2025 NAM RUIZ [facility] [address] [place], [place] [address] 03/03/2025 NAM RUIZ Well-controlled hypertension I10 [place] [phone] 03/03/2025 NAM RUIZ Well-controlled hypertension I10 [place] [phone] 03/23/2025 NAM RUIZ Elevated glucose R73.09 ; Hepatic steatosis K76.0 and Peripheral polyneuropathy G62.[address] [address] 03/25/2025 NAM RUIZ Elevated ferritin R79.[address] [address] 03/25/2025 NAM RUIZ [address] 03/26/2025 NAM RUIZ [place] [phone] 04/02/2025 NAM RUIZ [address] 04/03/2025 NAM RUIZ ASSESSMENTS Encounter Date Diagnosis Assessment Notes Treatment [...] R73.09) 03/23/2025 Hepatic steatosis (ICD-10 - K76.0) 03/25/2025 Elevated ferritin (ICD-10 - R79.89) 09/01/2024 Well-controlled hypertension (ICD-10 - I10) 01/27/2025 [...] TREATMENT Future Test Test Name Order Date ROYCE-65 Autoantibody-[id number] 03/23/2025 Hered.Hemochromatosis, DNA-[id number] 2024 Next Appt Details Provider Name:NAM RUIZ, 04/29/2025 10:40:00 AM, [address] [place], [address], Insurance Providers Payer Name Payer Address Payer Phone Subscriber Number Group Number Insured Name Patient Relationship to Insured Coverage Start Date Coverage End Date [facility] [address] [facility] [place] [address] [id number] LETI RIOS Self - patient is the insured 5 MEDICAL (GENERAL) HISTORY Medical History History ICD Code kidney stones Mar 2024 high blood pressure BPH colon polyp Surgical History Surgery Date(Month/Year)
--- OUTSIDE RECORDS SUMMARY | 2025-04-05 10:26 | XMS_ITS | Clinical Summary ---
Author Organization [facility] Address [address] [place] [address] Care Team Providers Care Patient Care Assistant Name Role Phone Unavailable Primary Care Provider [...]
== END 2025-04-05 10:03 | disposition home or self-care (01) ==
LOC: HO.HSM 09:45
PROVIDERS: PCP Internal Medicine; Visit Provider Psychiatry & Neurology Neurology
DX: G62.9 Polyneuropathy, unspecified (principal)
CPT/HCPCS: 99214

== ENCOUNTER 2025-04-26 14:18 | Outpatient (AMB) | payer OTHER, SELFPAY ==
--- OUTSIDE RECORDS SUMMARY | 2025-04-21 04:07 | XMS_ITS ---
Author Organization [facility] Address [address] [place] [id number] Care Team Providers Care Coffee Maker Name Role Phone NAM RUIZ Primary Care Provider REASON FOR VISIT Requesting MD Encounters Encounter Location Date Provider Diagnosis [address] [address] 04/21/2025 NAM RUIZ PLAN OF TREATMENT Next Appt Details Provider Name:NAM RUIZ, 04/29/2025 01:40:00 PM, [address] [place], [address],
--- OUTSIDE RECORDS SUMMARY | 2025-04-21 08:25 | XMS_ITS ---
Author Organization [facility] Address [address] [place] [id number] Care Team Providers Care Filter Pulp Washer Name Role Phone NAM RUIZ Primary Care Provider REASON FOR VISIT New Referral Request Encounters Encounter Location Date Provider Diagnosis [facility] [address] [place] [address] 04/21/2025 NAM RUIZ PLAN OF TREATMENT Next Appt Details Provider Name:NAM RUIZ, 04/29/2025 01:40:00 PM, [address] [place], [address],
--- OUTSIDE RECORDS SUMMARY | 2025-04-21 09:29 | XMS_ITS ---
Author Organization [facility] Address [facility] [place], [place] [phone] Care Team Providers Care Devulcanizer Tender Name Role Phone NAM RUIZ Primary Care Provider [phone] REASON FOR VISIT tingling face , torso , extremities PROBLEMS Problem Type ICD Code Onset Dates Problem Status W/U Status Risk SNOMED Code Notes Problem Tingling (R20.2) Active confirmed 90290090 Encounters Encounter Location Date Provider Diagnosis [facility] [address] [place] [address] 04/21/2025 NAM RUIZ Other chronic pain G89.29 and Tingling R20.2 ASSESSMENTS Encounter Date Diagnosis Assessment Notes Treatment Notes Treatment Clinical Notes Section Notes 04/21/2025 Other chronic pain (ICD-10 - G89.29) 04/21/2025 Tingling (ICD-10 - R20.2) PLAN OF TREATMENT Future Test Test Name Order Date Tick-borne Disease Ab Profile-[id number] 10/2024 Next Appt Details Provider Name:NAM RUIZ, 04/29/2025 01:40:00 PM, [address] [place], [address],
--- OUTSIDE RECORDS SUMMARY | 2025-04-21 14:05 | XMS_ITS ---
Author Organization [facility] Address [address] [place], [place] [phone] Care Team Providers Care Aircraft Quality Control Inspector Name Role Phone NAM RUIZ Primary Care Provider [phone] REASON FOR VISIT MRI C and L spine Encounters Encounter Location Date Provider Diagnosis [facility] [address] [place] [address] 04/21/2025 NAM RUIZ Pain in left arm M79.602 ; Pain in right arm M79.601 ; Pain in left leg M79.605 ; Pain in right leg M79.604 ; Arm numbness R20.0 ; Numbness of legs R20.0 and Facial numbness R20.0 ASSESSMENTS Encounter Date Diagnosis Assessment Notes Treatment Notes Treatment Clinical Notes Section Notes 04/21/2025 Pain in left arm (ICD-10 - M79.602) 04/21/2025 Pain in right arm (ICD-10 - M79.601) 04/21/2025 Pain in left leg (ICD-10 - M79.605) 04/21/2025 Pain in right leg (ICD-10 - M79.604) 04/21/2025 Arm numbness (ICD-10 - R20.0) 04/21/2025 Numbness of legs (ICD-10 - R20.0) 04/21/2025 Facial numbness (ICD-10 - R20.0) PLAN OF TREATMENT Pending Test Test Name Order Date MRI Cervical Spine without contrast 10/2024 MRI Lumbar Spine without contrast 2024 MRI Brain without contrast 04/21/2025 Next Appt Details Provider Name:NAM RUIZ, 04/29/2025 01:40:00 PM, [address] [place], [address],
--- OUTSIDE RECORDS SUMMARY | 2025-04-22 05:10 | XMS_ITS ---
Author Organization [facility] Address [facility] [place], [place] [id number] Care Team Providers Care Counseling Services Director Name Role Phone NAM RUIZ Primary Care Provider REASON FOR VISIT (3)test results/Lyme Positive MEDICATIONS Medication SIG (Take, Route, Frequency, Duration) Notes Start Date End Date Status Doxycycline Monohydrate 100 MG 1 capsule Orally twice a day for 21 days 04/23/2025 Active Encounters Encounter Location Date Provider Diagnosis [address] [address] 04/22/2025 NAM RUIZ Positive Lyme disease serology R76.8 ASSESSMENTS Encounter Date Diagnosis Assessment Notes Treatment Notes Treatment Clinical Notes Section Notes 04/22/2025 Positive Lyme disease serology (ICD-10 - R76.8) PLAN OF TREATMENT Medication Medication Name Sig Start Date Stop Date Notes Doxycycline Monohydrate 100 MG 1 capsule Orally twice a day for 21 days 04/23/2025 Next Appt Details Provider Name:NAM RUIZ, 04/29/2025 01:40:00 PM, [address] [place] [address], [phone],
--- NOTE | 2025-04-26 14:31 | MHC.OFFVIS ---
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 His labs and EMG/NCS of arms and legs in 2024 did not reveal any significant abnormality. He continues to complain of ?tingling? and ?inflammation? affecting his hands forearms legs and torso. He said that if he takes anti-inflammatory agent his swelling goes away but other symptoms days. His face was not affected. When asked if he was under stress, he said yes. When asked, I am talking about special type of stress, he said yes. But at the same time he was not forthcoming and did not want to talk about it. [facility] Medical History (Updated 04/26/25 @ 14:43 by Grover Aguilera MD) Pain in left finger(s) Pain in right finger(s) Tingling of both feet Colon polyp Hypertension BPH (benign prostatic hyperplasia) Family History (Updated 03/10/25 @ 08:02 by Sandy Anderson CMA) Father Colon cancer Maternal Aunt Colon cancer Review of Systems Const Details: Going through some stressful situation Physical Exam Neuro Other: Mental Status: Alert and oriented to person, place, and time. Normal attention. Normal spontaneous speech, fluency, and comprehension. No obvious issues with mood and memory. Affect is appropriate. Cranial Nerves: CN II: Visual georges full to confrontation, visual acuity intact. CN III, IV, : Pupils equal, round, reactive to light and accommodation. Extraocular movements are normal. CN V: Facial sensation is normal. CN VII: Facial movements symmetrical. CN VIII: Hearing intact to bedside conversation is normal. CN IX, X: Palate elevates symmetrically. CN XI: Shoulder shrug and head turn symmetrical. CN XII: Tongue midline without atrophy or fasciculations. Motor: Bulk and tone normal in all extremities. No significant muscle weakness in arms and legs. No drift. Reflexes: Deep tendon reflexes 2+ and symmetric. Plantar response down-going bilaterally. Coordination: Wpknws-lp-rrkl and iszr-rq-utbj testing normal. No dysmetria. Gait and Station: No obvious gait abnormality. No ataxia or instability. Sensory: Intact to light touch, pinprick, and vibration. Romberg is negative. Extrapyramidal: Full facial expressions and blinking. No rigidity. Movements are appropriate with no tremor or abnormality. Speech: Normal; no dysarthria or tremor. Assessment & Plan Assessment & Plan (1) Small fiber neuropathy: Comment: Labs in [facility] in January 2025: B12, IF OK. A1c 5.6, FBS 117, LFTs ok, CBC ok, Lyme neg, IF ok, ELO ok EMG/NCS at off 4 limbs in 2024: WNL Code(s): G62.9 - Polyneuropathy, unspecified Category: Medical Plan Impression: Small fiber neuropathy is a possibility but more likely possibility is psychosomatic disorder. Rec: a: Counseling/therapy b: Skin biopsy Coding Level of Care Code Est Pt Level 4 (04156) Diagnoses Small fiber neuropathy G62.9
--- OUTSIDE RECORDS SUMMARY | 2025-04-26 16:42 | XMS_ITS | Encounter Summary ---
Author Organization [facility] Address [address] [place] [address] Phone Care Team Providers Care Bulk Mail Clerk Name Role Phone Grover Gregory MD Primary Care Provider [phone] Encounter Details Date Type Department Care Team ([facility] st Contact Info) Description 03/21/2024 Procedure Pass OR Admitting Dept - Virtual Department [address] [place] [address] Social History Tobacco Use Types Packs/Day Years [...] on filedocumented in this encounter Care Teams Bulk Mail Clerk Relationship Specialty Start Date End Date Grover Gregory MD [address] [address] PCP - General Internal Medicine 04/29/19 documented as of this encounter Additional Source Comments The information contained in this document represents components of the legal health record. It is not the complete legal health record.[facility]
--- OUTSIDE RECORDS SUMMARY | 2025-04-26 16:42 | XMS_ITS | Encounter Summary ---
Author Organization [facility] Address [address] [place] [address] Phone Care Team Providers Care Postal Worker Name Role Phone Grover Gregory MD Primary Care Provider [phone] Encounter Details Date Type Department Care Team ([facility] st Contact Info) Description 03/19/2024 Procedure Pass [facility], Ct Scan - [address] [address] Social History Tobacco Use Types Packs/Day Years [...] PM EDT documented as of this encounter Functional Status * Calculated C-SSRS Risk Score (Lifetime/Recent) Answer Date of Assessment Author No Risk Indicated 03/19/2024 4:04 PM EDT Keisha Gray RN * [place] Suicide Severity Rating Scale (Screener/Recent Self-Report) Question Answer Date of Assessment Author 1. Wish to be (Past 1 Month) No 03/19/2024 4:04 PM EDT Libby Taylor RN 2. Non-Specific Active Suicidal Thoughts (Past 1 Month) No 03/19/2024 4:04 PM EDT Libby Taylor RN 6. Suicidal Behavior (Lifetime) No 03/19/2024 4:04 PM EDT Libby Taylor RN documented as of this encounter Plan of Treatment Not on file documented as of this encounter Visit Diagnoses Not on filedocumented in this encounter Care Teams Postal Worker Relationship Specialty Start Date End Date Grover Gregory MD [address] [address] PCP - General Internal Medicine 04/29/19 documented as of this encounter Additional Source Comments The information contained in this document represents components of the legal health record. It is not the complete legal health record.[facility]
--- OUTSIDE RECORDS SUMMARY | 2025-04-26 16:42 | XMS_ITS | Clinical Summary ---
Author Organization [facility] Address [address] [place] [address] Phone Care Team Providers Care Military Police Officer Name Role Phone Anthony, Mark Booth DO Primary Care Provider [phone] Allergies No known active allergies Medications No known medications Encounters Date Type Department Care Team Description 04/12/2025 1:48 PM EDT - 04/12/2025 2:24 PM EDT Emergency [facility] Emergency [address] [place] [phone] Bo Cruz MD Neuropathy (Primary Dx) Discharge Disposition: Home or Self Care 04/12/2025 Telephone [facility] Hematology Oncology [address] [place] [phone] Yadira Aquino MD from Last 3 Months Surgical History Surgery Date Site/Laterality Comments APPENDECTOMY PROCEDURE: [place] APPENDECTOMY Medical History Medical History Date Comments Appendicitis DX:Appendicitis Kidney stones Hypertension Social History Tobacco Use Types Packs/Day Years Used Date Smoking Tobacco: Never Smokeless Tobacco: Never Alcohol Use Standard Drinks/Week Comments Yes 0 (1 standard drink = 0.6 oz pur e alcohol) Sex and Gender Information Value Date Recorded Sex Assigned at Male 04/01/2025 4:03 PM EDT Legal Sex Male 6:22 AM EST Gender Identity Male 04/01/2025 4:03 PM EDT Sexual Orientation Straight 04/01/2025 4: 03 PM EDT Obstetrics History Last Filed Vital Signs Vital Sign Reading Time Taken Comments Blood Pressure 151/77 04/12/2025 12:50 PM EDT Pulse 72 04/12/2025 12:50 PM EDT Temperature 36.9 C (98.4 F) 04/12/2025 12:50 PM EDT Respiratory Rate 16 04/12/2025 12:50 PM EDT Oxygen Saturation 99% 04/12/2025 12:50 PM EDT Inhaled Oxygen Concentration - - Weight 72.6 kg (160 lb) 04/12/2025 12:50 PM EDT Height 175.3 cm (5' 9 ) 04/12/2025 12:50 PM EDT Body Mass Index 23.63 04/12/2025 12:50 PM EDT Plan of Treatment Upcoming Encounters Date Type Department Care Team (Late st Contact Info) Description 05/06/2025 10:30 AM EDT Office Visit [facility] Hematology Oncology [address] [place] [phone] Yadira Aquino MD [address] [place] [address] Health Maintenance Due Date Last Done Comments DTaP,Tdap,and Td Vaccines (1 - Tdap) 12/01/1983 Pneumococcal Vaccine: 50+ Years (1 of 1 - PCV) 2014 Zoster Vaccines (1 of 2) 2014 Cholesterol Screening (Lipid Panel) 03/17/2024 Colorectal Cancer Screening: Colonoscopy 03/17/2024 HIV Screening 03/17/2024 Hepatitis C Screening 03/17/2024 Social Influencers of Health Screening 03/17/2024 Depression Screening 08/19/2024 Hypertension/CHF/CAD Annual BMP Blood Test 03/21/2025 03/21/2024, 03/20/2024 COVID-19 Vaccine (1 - 2023-2 5 season) 2025 Influenza Vaccine (#1) 2025 RSV Immunization Adult Patients (1 - 1-dose 75+ series) 12/01/2039 HIB Vaccines Aged Out No longer eligi ble based on patient's age to complete this topic HPV Vaccines Aged Out No longer eligi ble based on patient's age to complete this topic Hepatitis A Vaccines Aged Out No long er eligible based on patient's age to complete this topic Hepatitis B Vaccines Aged Out No long er eligible based on patient's age to complete this topic IPV Vaccines Aged Out No longer eligi ble based on patient's age to complete this topic MMR Vaccines Aged Out No longer eligi ble based on patient's age to complete this topic Meningococcal ACWY Vaccine Aged Out N o longer eligible based on patient's age to complete this topic Meningococcal B Vaccine Aged Out No l onger eligible based on patient's age to complete this topic RSV Immunization Patients Under 20 months Aged Out No longer eligible b ased on patient's age to complete this topic Varicella Vaccines Aged Out No longer eligible based on patient's age to complete this topic Insurance [facility] Care Teams Military Police Officer Relationship Specialty Start Date End Date Mark Cruz DO [address] [place] [id number] PCP - General Internal Medicine 04/01/25
--- OUTSIDE RECORDS SUMMARY | 2025-04-26 16:42 | XMS_ITS | Clinical Summary ---
Author Organization [facility] Address [address] [place] [address] Phone Care Team Providers Care Food Service Sales Representatives Name Role Phone Grover Gregory MD Primary Care Provider [phone] Allergies No known active allergies Medications finasteride (PROSCAR) 5 mg tabletIndication s:benign prostatic hyperplasia with lower urinary tract sx Take 5 mg by mouth daily. Indications: enlarged prostate with urination problem Active acetaminophen (TYLENOL) 325 mg tablet Take 650 mg by mouth every 6 (six) hours as needed for mild pain. Active cholecalciferol (VITAMIN D3) 25 MCG (1,000 unit) tablet Take 1,000 Units by mouth daily. Active magnesium 250 mg Tab Take by mouth daily. Active lisinopril (PRINIVIL,ZESTRI L) 5 MG tablet Take 5 mg by mouth daily. Active Active Problems Problem Noted Date Diagnosed Date Hypertension 03/20/2024 Assessment & Plan (03/20/2024 3:06 PM EDT): Hydronephrosis 03/20/2024 Assessment & Plan (03/20/2024 3:06 PM EDT): As above Ureterolithiasis 03/19/2024 Assessment & Plan (03/20/2024 3:06 PM EDT): Left Ureteral stone w/ mild hydro --Large left ureteral stones, unlikely to pass --pt is afebrile, wbc wnl and denies any flank pain this AM --He has been NPO since midnight. --PLAN: CYSTO, L RPG, LEFT URETEROSCOPY, LEFT STENT PLACEMENT, POSSIBLE STONE LASER LITHOTRIPSY & STONE REMOVAL - continue empiric ceftriaxone per urology, await urine culture data Social History Tobacco Use Types Packs/Day Years [...] Orientation Straight 03/19/2024 4: 06 PM EDT Last Filed Vital Signs Vital Sign Reading Time Taken Comments Blood Pressure 124/69 03/21/2024 3:00 PM EDT Pulse 86 03/21/2024 3:00 PM EDT Temperature 36.5 C (97.7 F) 03/21/2024 3:00 PM EDT Respiratory Rate 16 03/21/2024 3:00 PM EDT Oxygen Saturation 95% 03/21/2024 3:00 PM EDT Inhaled Oxygen Concentration - - Weight 77.1 kg (170 lb) 03/19/2024 4:01 PM EDT Height 175.3 cm (5' 9 ) 03/19/2024 4:01 PM EDT Body Mass Index 25.1 03/19/2024 4:01 PM EDT Plan of Treatment Health Maintenance Due Date Last Done Comments Adult Td,Tdap Booster 1965 BLOOD PRESSURE 1965 LIPID PANEL 1965 DEPRESSION SCREENING 1976 HEPATITIS C SCREENING 1982 HIV ONE-TIME SCREENING (18-6 5 YEARS) 1982 COLOGUARD 2009 FIT TEST 2009 FOBT 2009 SIGMOIDOSCOPY 2009 VIRTUAL COLONOSCOPY 2009 PNEUMOCOCCAL VACCINES (50+ years) (1 of 1 - PCV) 2014 ZOSTER VACCINES (1 of 2) 2014 INFLUENZA VACCINE (#1) 2025 CREATININE LEVEL 03/21/2025 03/21/2024, 03/20/2024, 03/19/2024 POTASSIUM LEVEL 03/21/2025 03/21/2024, 03/20/2024, 03/19/2024 COVID-19 VACCINE (1 - 2023-2 5 season) 2025 SCREENING FOR DIABETES 03/21/2027 03/21/2024 COLONOSCOPY 05/08/2029 05/08/2019 COLORECTAL CANCER SCREENING 05/08/2029 RSV VACCINE (1 - 1-dose 75+ series) 12/01/2039 SMOKING STATUS SCREENING (On ce After 26 Yrs) Completed 05/08/2019 HEPATITIS A VACCINES Aged Out No long er eligible based on patient's age to complete this topic HIB VACCINES Aged Out No longer eligi ble based on patient's age to complete this topic MENINGOCOCCAL VACCINES (ACWY) Aged Out No longer eligible based on patient's age to complete this topic MENINGOCOCCAL VACCINES (B) Aged Out N o longer eligible based on patient's age to complete this topic Medical Devices Implanted Type Area Machine Operator Hop Worker Device Identifier Shelf Expiration Date Model / Serial / Lot Stent Ureteral 6fr 22 To 30cm Stretch Coated Dudley - [id number] Implanted:Qty : 1 on 03/21/2024 by Shawn Nicole MD at [facility] Left: Ureter Wibiya LOLA [id number] 08/05/2026 [id number] / / [id number] Procedures Procedure Name Priority Date/Time Associated Diagnosis Comments COMPREHENSIVE METABOLIC PANEL Routine 03/21/2024 5:29 AM EDT ENDOSCOPY, COLON 05/08/2019 8:51 AM EDT from Last 3 Months or Most Recently Relevant to Health Maintenance Results * (ABNORMAL) Comprehensive metabolic panel (03/21/2024 5:29 AM EDT) SODIUM 141 133 - 146 mmol/L [facility] POTASSIUM 4.2 3.3 - 5.1 mmol/L [facility] CHLORIDE 104 96 - 108 mmol/L [facility] CO2 27 21 - 35 mmol/L [facility] BUN 14 6 - 19 mg/dL [facility] CREATININE 1.00 0.5 - 1.5 mg/dL [facility] GLUCOSE 97 70 - 99 mg/dL [facility] ALBUMIN 4.1 3.9 - 4.8 g/dL [facility] TOTAL PROTEIN 6.4(L) 6.5 - 8.0 g/dL [facility] CALCIUM 9.0 8.4 - 10.3 mg/dL [facility] ALKALINE PHOSPHATASE 54 39 - 117 U/L [facility] TOTAL BILIRUBIN 0.5 0.0 - 1.2 mg/dL [facility] AST 25 0 - 37 U/L [facility] ALT 40 0 - 40 U/L [facility] GLOBULIN 2.3 1 - 4.8 g/dL [facility] EGFR 87 >59 mL/min/1.7 3m2 [facility] Comment:Estimated glomerular filtration rate calculated using the CKD-EPI refit equation. ANION GAP 14 10 - 20 mmol/L [facility] Blood 03/21/2024 5:29 AM EDT 03/21/2024 5:38 AM EDT us Char Conner DO, MPH LAB BLOOD ORDER SWEAT Final Result [address] [address] * ENDOSCOPY, COLON (05/08/2019 8:51 AM EDT) Narrative Transcriptions Chas Hess MD - 05/08/2019 8:51 AM EDT Patient Name: Froy Sinha Attending MD:: CHAS HESS MD Procedure Date: 05/08/2019 8:51 AM Date of : 1965 Age: 53 Admit Type: Outpatient Gender: Male Room: [place] [address] Referring MD: Grover Gregory Exam Type: Colonoscopy Indications: Screening for colon cancer: Family history ofcolorectal cancer in distant relative(s) before age 60, Screeningin patient at increased risk: Colorectal cancer in or older, This is the patient's first colonoscopy Medications: Monitored Anesthesia Care Procedure: Informed consent was obtained from the patient after discussion of the indications, limitations,alternatives, benefits, and risks of the procedure. Risksspecifically discussed include but are not limited to medication reactions, missed lesions, bleeding, perforation, orthe need for emergent surgery. Throughout the procedure, the patient's blood pressure, pulse, end-tidal CO2, and oxygen saturations were monitored continuously. The Olympus pediatric variable colonoscope [id number] was introduced through the anus and advanced to thececum, identified by the appendiceal orifice, ileocecal valveand palpation. The colonoscopy was performed without difficulty. The patient tolerated the procedure fairly well. The quality of the bowel preparation was good. Complications: No immediate complications. Estimated blood loss:None. Findings: The perianal and digital rectal examinations werenormal. Pertinent negatives include normal sphincter tone. The colon (entire examined portion) appeared normal. Retroflexion in the right colon was performed. Impression: - The entire examined colon is normal. - No specimens collected. Recommendation: - Repeat colonoscopy in 5 years for screeningpurposes. CHAS HESS MD 05/08/2019 9:11:11 AM This report has been signed electronically. Number of Addenda: 0 Note Initiated On: 05/08/2019 8:51 AM Procedure Code(s): --- Professional --- 82111, Colonoscopy, flexible; diagnostic, including collection of specimen(s) by brushing or washing, when performed (separateprocedure) --- Technical --- 23632, Colonoscopy, flexible; diagnostic, including collection of specimen(s) by brushing or washing, when performed (separateprocedure) Diagnosis Code(s): --- Professional --- Z12.11, Encounter for screening for malignant neoplasm of colon Z80.0, Family history of malignant neoplasm of digestive organs --- Technical --- Z12.11, Encounter for screening for malignant neoplasm of colon Z80.0, Family history of malignant neoplasm of digestive organs CPT copyright 2018 [employer]. All rights reserved. The codes documented in this report are preliminary and upon receiving tank operator reviewmay be revised to meet current compliance requirements. [address] [place] [address] Grover Gregory MD GI PROCEDURE ORDERABLES Fin al Result from Last 3 Months or Most Recently Relevant to Health Maintenance Insurance O O O HMO O O Advance Directives For more information, please contact: [phone] (9AM - 5PM [place], Saturday-Saturday) * Full Code (Latest Code Status on File) Date Activated Date Inactivated Comments 03/19/2024 11:10 PM Question Answer Comments Code Status Confirmed With: Patient Code Status Communicated To: Inpatient Attending Care Teams Food Service Sales Representatives Relationship Specialty Start Date End Date Grover Gregoyr MD [address] [facility] [address] [place] [address] PCP - General Internal Medicine 04/29/19 Additional Source Comments The information contained in this document represents components of the legal health record. It is not the complete legal health record.[facility]
--- OUTSIDE RECORDS SUMMARY | 2025-04-26 16:42 | XMS_ITS | Patient Health Record ---
Author Organization [facility] Address [address], [place] [id number] Care Team Providers Care Manual Writer Name Role Phone NAM RUIZ Primary Care Provider [phone] NINFA EFRA Unavailable [phone] RESULTS Component Value Reference Range Notes ROYCE-65 Autoantibody-[id number] Reviewed date:04/05/2025 04:30:02 PM Interpretation: Performing Lab:[facility] [place], [facility], Phone - [phone], Director - Nereyda Notes/Report: ROYCE-65 20.9 0.0-5.0 U/mL Prothrombin Time (PT)-466193 Reviewed date:09/02/2024 08:37:44 AM Interpretation: Performing Lab:[facility] [place], [address] [facility], Phone - [phone], Director - Karel Notes/Report: INR 1.0 0.9-1.2 Reference interval is for non-anticoagulated patients. . Suggested INR therapeutic range for Vitamin K antagonist therapy: Standard Dose (moderate intensity therapeutic range): 2.0 - 3.0 Higher intensity therapeutic range 2.5 - 3.5 Prothrombin Time 10.9 9.1-12.0 sec Hepatic Function Panel (7)-3 32566 Reviewed date:03/25/2025 03:33:56 PM Interpretation: Performing Lab:[facility] [place], [address] [facility], Phone - [phone], Director - Karel Notes/Report: Protein, Total 7.5 6.0-8.5 g/dL Albumin 5.1 3.8-4.9 g/dL Bilirubin, Total 0.8 0.0-1.2 mg/dL Bilirubin, Direct 0.28 0.00-0.40 mg/dL Alkaline Phosphatase 67 44-121 IU/L AST (SGOT) 28 0-40 IU/L ALT (SGPT) 30 0-44 IU/L Hered.Hemochromatosis, DNA-5 90260 Reviewed date:04/14/2025 06:20:23 PM Interpretation: Performing Lab: Notes/Report: Hereditary Hemochromatosis Reviewed by: Sedimentation Rate-Betsey [id number] Reviewed date:04/21/2025 05:49:06 PM Interpretation: Performing Lab:[facility], [address] [place] [address], Phone - [phone], Director - Karel Notes/Report: Sedimentation Rate-Shannan 4 0-30 mm/hr EKG Reviewed date:01/27/2025 04:22:23 PM Interpretation: Performing Lab: Notes/Report: ECGDiastolicBP ECGHr ECGPRInterval ECGPWaveAxis ECGQRSDuration ECGQrsWaveAxis ECGQTcInterval ECGQTInterval ECGSystolicBP ECGTWaveAxis RR_DiastolicBP RR_MaxRRInterval RR_MeanHR RR_MeanRRInterval RR_MinRRInterval RR_NumBeats RR_NumNormalBeats RR_SystolicBP Ferritin-984885 Reviewed date:04/21/2025 05:48:54 PM Interpretation: Performing Lab:[facility], [address] [place] [address], Phone - [phone], - Karel Notes/Report: Ferritin 543 30-400 ng/mL C-Reactive Protein, Quant-00 6627 Reviewed date:04/08/2025 01:37:48 PM Interpretation: Performing Lab:[facility] [address] [place] [address], [place], Phone - [phone], - Karel Notes/Report: C-Reactive Protein, Quant <1 0-10 mg/L Iron and TIBC-820419 Reviewed date:03/25/2025 03:16:12 PM Interpretation: Performing Lab:[facility] [address] [place] [address], Phone - [phone], - Karel Notes/Report: Iron Bind.Cap.(TIBC) 381 250-450 ug/dL UIBC 262 111-343 ug/dL Iron 119 38-169 ug/dL Iron Saturation 31 15-55 % Hemoglobin X7b-977550 Reviewed date:03/25/2025 03:34:16 PM Interpretation: Performing Lab:[facility] [address], Phone - [phone], Director - RIKelsie Notes/Report: and Drug Administration. by [facility]. It has not been cleared or approved by the Food was developed and its performance characteristics determined Test(s) 711420-Jyjo, Blood (Adult) Hemoglobin A1c 5.5 4.8-5.6 % . Prediabetes: 5.7 - 6.4 Diabetes: >6.4 Glycemic control for adults with diabetes: <7.0 ELO by IFA Rfx Titer/Pattern -628826 Reviewed date:04/09/2025 01:42:17 PM Interpretation: Performing Lab:[facility] [address], Phone - [phone], Director - Karel Notes/Report: ELO by IFA Rfx Titer/Pattern Negative Negative <1:80 Borderline 1:80 Positive >1:80 ICAP nomenclature: AC-0 For more information about Hep-2 cell patterns use ANApatterns.org, the official website for the International Consensus on Antinuclear Antibody (ELO) Patterns (ICAP). Lead, Blood (Adult)-315110 Reviewed date:03/25/2025 03:33:43 PM Interpretation: Performing Lab:[facility], [place], Phone - [phone], Director - Karel Notes/Report: Test(s) 591951-Crgv, Blood (Adult) was developed and its performance characteristics determined by [facility]. It has not been cleared or approved by the Food and Drug Administration. Lead, Blood (Adult) 1.2 0.0-3.4 ug/dL Testing performed by Inductively coupled plasma/Mass Spectrometry. Analysis by inductively coupled plasma/mass spectrometry (ICP/MS) Environmental Exposure: WHO Recommendation <5.0 Occupational Exposure: OSHA Lead Std 40.0 AJ 30.0 . Detection Limit = 1.0 [facility] n-[id number] Reviewed date:04/08/2025 08:12:16 AM Interpretation: Performing Lab:[facility] [place], [address], [place], Phone - [phone], Director - Karel Notes/Report: Sedimentation Rate-Westergren 2 0-30 mm/hr Hered.Hemochromatosis, DNA-5 95864 Reviewed date:04/22/2025 05:31:50 PM Interpretation: Performing Lab:[facility], [address] [facility], [facility], Phone - [phone], Director - Arturo Notes/Report: Hereditary Hemochromatosis Result: c.845G>A (p.Tjn403Rab) - Not Detected c.187C>G (p.Zis19Bno) - Not Detected c.193A>T (p.Frs90Nub) - Not Detected Not associated with increased risk to develop clinical symptoms of Hereditary Hemochromatosis. In symptomatic individuals, other causes of iron overload should be evaluated. See Additional Information and Comments. Additional Clinical Information: Hereditary hemochromatosis (HFE related) is an autosomal recessive iron storage disorder. Patients may have a genetic diagnosis of hereditary hemochromatosis and never show clinical symptoms. Clinical symptoms typically appear between 40 to 60 years in males and after menopause in females. Signs and symptoms may include organ damage, primarily in the liver, risk for hepatocellular carcinoma, diabetes, and heart disease due to iron accumulation. Life expectancy may be decreased in individuals who develop cirrhosis. Treatment for clinically symptomatic individuals may include therapeutic phlebotomy. Liver transplant may be used to treat end stage liver failure. For preventive care, monitoring for iron overload is recommended for patients who are homozygous for c.845G>A (p.Zqu828Flh) and have yet to experience clinical symptoms. . Comments: The most common HFE variants associated with hereditary hemochromatosis are c.845G>A (p.Kwk132Avb), c.187C>G (p.Piz41Hba), c.193A>T (p.Bfc49Aas). While patients homozygous for c.845G>A (p.Kcj678Awd) are the most likely to present clinical symptoms, less than 10% develop clinically significant iron overload with tissue and organ damage. . Genetic counseling is recommended to discuss the potential clinical implications of positive results, as well as recommendations for testing family members. Genetic Coordinators are available for health care providers to discuss results at [phone]). . Test Details: Three variants analyzed: c.845G>A (p.Ley264Oby), commonly referred to as C282Y c.187C>G (p.Rdk57Jno), commonly referred to as H63D c.193A>T (p.Kvf43Ysf), commonly referred to as S65C . Methods/Limitations: DNA Analysis of the HFE gene (NM_000410.4) was performed by PCR amplification followed by restriction enzyme digestion analyses. Results must be combined with clinical information for the most accurate interpretation. Molecular-based testing is highly accurate, but as in any laboratory test, diagnostic errors may occur. False positive or false negative results may occur for reasons that include genetic variants, blood transfusions, bone marrow transplantation, somatic or tissue-specific mosaicism, mislabeled samples, or erroneous representation of family relationships. This test was developed and its performance characteristics determined by [facility]. It has not been cleared or approved by the Food and Drug Administration. . References: Woody BR, Reynold PC, Eusebio KV, Mino LW, Christy ; [place] Association for the Study of Liver Diseases. Diagnosis and management of hemochromatosis: 2011 practice guideline by the [place] [employer] for the Study of Liver Diseases. Hepatology. 2011 Feb;54(1):328-43. doi: 10.1002/hep.23722. PMID: 04187293; PMCID: MCP3971343. Washington G, Will P, Ena ZALDIVAR, Tamiko H, Ayan O, Evin S, Jerry I, Suleiman M, Bill S. [facility] best practice guidelines for the molecular genetic diagnosis of hereditary hemochromatosis (HH). Eur J Hum Chikis. 2016 Apr;24(4):479-95. doi: 10.1038/ejhg.2015.128. Epub 2014Feb 23. PMID: 12481282; PMCID: QQT7782477. Reviewed by: Technical Component performed at [facility] Professional Component performed by: Samanta Romano, PhD, [facility] [id number], [facility], [address] [place] [address] Glucose-456516 Reviewed date:03/25/2025 03:34:06 PM Interpretation: Performing Lab:[facility], Phone - [phone], Director - Karel Notes/Report: Glucose 95 70-99 mg/dL Insulin-832936 Reviewed date:03/25/2025 03:35:37 PM Interpretation: Performing Lab:[facility] [address], Phone - [phone], Director - RIKelsie Notes/Report: Insulin 9.4 2.6-24.9 uIU/mL Hemoglobin N4e-668391 Reviewed date:12/16/2024 01:56:15 PM Interpretation: Performing Lab:[facility] [address], Phone - [phone], Director - [facility] Notes/Report: Hemoglobin A1c 5.6 4.8-5.6 % . Prediabetes: 5.7 - 6.4 Diabetes: >6.4 Glycemic control for adults with diabetes: <7.0 Vitamin R72-733619 Reviewed date:02/11/2025 08:19:05 AM Interpretation: Performing [facility], [address] [place] [address], Phone - [phone], [facility] Notes/Report: Vitamin B12 >2000 232-1245 pg/mL Lyme Disease Serology w/Refl ex-743064 Reviewed date:03/08/2025 08:09:48 AM Interpretation: Performing Lab:[facility], Phone - [phone], [facility] Notes/Report: Lyme Total Antibody ALEXIS Negative Negative [...] 14 days is recommended. Lyme, Line Blot, Serum-48211 0 Reviewed date:03/07/2025 03:19:55 PM Interpretation: Performing Lab:[facility] [address], Phone - [phone], Director - Karel Notes/Report: Lyme IgG Line Blot Interp. Negative [...] improve the sensitivity and specificity of testing. [employer] offers test code 019799 Lyme Disease Serology with Reflex to aid [...] with 30 or more days of symptoms. C-Reactive Protein, Quant-00 6627 Reviewed date:04/21/2025 05:49:20 PM Interpretation: Performing [facility], [address] [place] [address], Phone - [phone], Director - Sangeetalucinda Notes/Report: C-Reactive Protein, Quant <1 0-10 mg/L Prostate-Specific Ag (PSA)-0 50532 Reviewed date:09/02/2024 08:38:42 AM Interpretation: Performing Lab:[facility] [place], [address] [facility], [place], Phone - [phone], Director - Karel Notes/Report: Prostate Specific Ag 0.1 0.0-4.0 ng/mL Walter ECLIA methodology. . According to the [employer] [employer], Serum PSA should decrease and [...] the presence or absence of malignant disease. Creatine Kinase,Total-959204 Reviewed date:04/08/2025 01:38:03 PM Interpretation: Performing Lab:[facility] [place], [address] [place] [address], Phone - [phone], Director - Karel Notes/Report: Creatine Kinase,Total 145 41-331 U/L Protein Electrophorese,Serum -189828 Reviewed date:02/16/2025 06:04:07 PM Interpretation: Performing Lab:[facility] [place], [address] [place] [address], Phone - [phone], Director - Karel Notes/Report: Protein, Total 7.1 6.0-8.5 g/dL Albumin 4.1 2.9-4.4 g/dL Varzb-3-Dnmioxug 0.2 0.0-0.4 g/dL Botxn-7-Jjfpnysd 0.8 0.4-1.0 g/dL Beta Globulin 1.1 0.7-1.3 g/dL Gamma Globulin 0.9 0.4-1.8 g/dL M-Ángel Not Observed Not Observed g/dL Globulin, Total 3.0 2.2-3.9 g/dL A/G Ratio 1.4 0.7-1.7 Please note: Protein electrophoresis scan will follow via computer, mail, or forming machine upkeep mechanic helper delivery. PDF . CBC, Platelet, w/o Different ial-311662 Reviewed date:09/02/2024 08:38:27 AM Interpretation: Performing Lab:[facility] [place], [address] [place] [address], Phone - [phone], Director - Sangeetadry Notes/Report: WBC 5.3 3.4-10.8 x10E3/uL RBC 5.34 4.14-5.80 x10E6/uL Hemoglobin 16.2 13.0-17.7 g/dL Hematocrit 47.2 37.5-51.0 % MCV 88 79-97 fL MCH 30.3 26.6-33.0 pg MCHC 34.3 31.5-35.7 g/dL RDW 12.9 11.6-15.4 % Platelets 247 150-450 x10E3/uL NRBC Comp. Metabolic Panel (14)-3 31165 Reviewed date:09/02/2024 01:34:05 PM Interpretation: Performing Lab:[facility] [place], [address] [place] [address], Phone - [phone], Director - MDAbebay Notes/Report: Glucose 117 70-99 mg/dL BUN 19 [...] 0-40 IU/L ALT (SGPT) 40 0-44 IU/L Ferritin-240507 Reviewed date:03/25/2025 03:33:33 PM Interpretation: Performing Lab:[facility], [address] [place] [address], Phone - [phone], Director - Jaredy Notes/Report: Ferritin 1225 30-400 ng/mL Lipid Panel With LDL/HDL Rat io-541110 Reviewed date:09/02/2024 08:39:10 AM Interpretation: Performing Lab:[facility] [place], [address] [place] [address], Phone - [phone], Director - MDJodry Notes/Report: Cholesterol, Total 225 100-199 mg/dL Triglycerides 77 0-149 mg/dL HDL Cholesterol 60 >39 mg/dL VLDL Cholesterol Attila 13 5-40 mg/dL LDL Chol Calc ([facility]) 152 0-99 mg/dL LDL Calc Comment: LDL/HDL Ratio 2.5 0.0-3.6 ratio LDL/HDL Ratio Men Women 1/2 Avg.Risk 1.0 1.5 Avg.Risk 3.6 3.2 2X Avg.Risk 6.2 5.0 3X Avg.Risk 8.0 6.1 Insulin Antibodies-962018 Reviewed date:04/05/2025 07:53:21 AM Interpretation: Performing Lab:[facility], [address] [place] [address], Phone - [phone], Director - Luc Notes/Report: Insulin Antibodies <5.0 This test is also known as insulin autoantibody or IAA. This test was developed and its performance characteristics determined by [facility]. It has not been cleared or approved by the Food and Drug Administration. Reference Range: <5.0 Negative > or = 5.0 Positive REASON FOR REFERRAL Reason 59 yr old male with chronic tingling feet and recent shock pain fingertips bilateral, Diagnosis 1 Tingling of both fee t (R20.2) Diagnosis 2 Pain in right finger (s) (M79.644) Diagnosis 3 Pain in left finger( s) (M79.645) [facility] Referring Provider First Name NAM Referring Provider Last Name SARA Referring Provider Speciality Internal edicine Referred Provider HILL AGARWAL Referred Provider Specialty Neurology General Notes NAM RUIZ 2024 11:11:34 AM > , Georgette FUNEZ Referrals 02/04/2025 04:24:57 PM > per 01/27/25 visit > he will use referral copy to neurology to call for consult appt , MEDICAL referral and notes have also been faxed to Dr. Veloz at [phone], Georgette FUNEZ Referrals 02/10/2025 09:29:04 AM > [...] Fluctuating blood pr essure (I99.8) [facility] Referring Provider First Name NAM Referring Provider Last Name SARA Referring Provider Speciality Internal edicine Referred Provider Specialty Cardiovascul ar Disease General Notes NAM RUIZ 2024 11:23:42 AM > [facility] , [facility], 59 yr old male with recurrent lightheadedness, fluctuating blood pressure , r/o cardiovascualar disease , Georgette FUNEZ Referrals 02/04/2025 04:19:39 PM > per 01/27/25 visit > he will use referral copy to cardiology to call for consult appt , medical referral and notes have also been faxed to [facility] at [phone] Referral Priority Routine Reason (04/05/25 Wtg appt) [facility] > 59 yr old male with peripheral neuropathy and high ferritin, please see possible hemochromatosis Diagnosis 1 Elevated ferritin (R 79.89) Diagnosis 2 Peripheral polyneuro sergio (G62.9) Referral Organization [facility] Referring Provider First Name NAM Referring Provider Last Name SARA Referring Provider Speciality Internal M edicine Referred Organization [facility] Referred Provider Specialty Hematology/O ncology General Notes Lisa FUNEZ Support Services Stretching Machine Operator 03/25/2025 04:26:17 PM > Faxed to [facility] with note. Labs to follow via fax right after., Kaity FUNEZ MA 04/02/2025 03:32:32 PM > pt requested be sent to [facility]. Faxed URGENT to [phone], Georgette FUNEZ Referrals 04/05/2025 09:32:44 AM > noted Clinical Notes Kayla FUNEZ MA 0 04/09/2025 04:45:19 PM > Georgette from the [facility] called with appt info for Pt. Jun 16 at 2pm with Zuleika Mcnair at [address] in [place]. FYI Referral Priority Urgent Reason 59 yr old male with significant joints pain , high ferritin , please send all March labs Diagnosis 1 Arthralgia, unspecif ied joint (M25.50) Diagnosis 2 Elevated ferritin (R 79.89) Referral Organization [facility] Referring Provider First Name NAM Referring Provider Last Name SARA Referring Provider Speciality Internal M edicine Referred Provider Specialty Hematology/O ncology General Notes NAM RUIZ 2024 09:18:39 AM > [facility]; send all [place] lans and ferritin crp, sed rate labs, Kayla FUNEZ MA 04/12/2025 01:33:11 PM > Faxed to [facility] Priscilla P [place] 04/12/2025 01:51:42 PM > [phone] fax to above Referral Priority Urgent Reason 59 yr old male with chronic tingling pain in extremities and torso and elevated ferritin, r/o rheumatologid dz Diagnosis 1 Elevated ferritin (R 79.89) Diagnosis 2 Other chronic pain ( G89.29) Referral Organization [facility] Referring Provider First Name NAM Referring Provider Last Name SARA Referring Provider Speciality Internal M edicine Referred Provider Specialty Rheumatology General Notes NAM RUIZ 2024 01:25:52 PM > Dr Allan More rheumatology ; [address], [facility] [phone] Clinical Notes Kayla FUNEZ MA 0 04/21/2025 03:37:50 PM > faxing to [phone], faxed referral. labs and last ov notes fax number is [phone] Referral Priority Urgent MEDICATIONS Medication SIG (Take, Route, Frequency, Duration) Notes Start Date End Date Status amLODIPine Besylate 5 MG 1 tablet Orally Once a day for 30 day(s) 03/03/2025 Active amLODIPine Besylate 5 MG 1 tablet Orally Once a day for 30 day(s) 03/03/2025 Active Doxycycline Monohydrate 100 MG 1 capsule Orally twice a day for 21 days 04/23/2025 Active SOCIAL HISTORY Tobacco Use: Social History Observation Description Date Details (start date - stop date) Never Smoker NA - NA Sex Assigned At : Social History Observation Description Sex Assigned At Unknown Smoking Question Answer Notes Are you a: never smoker PROBLEMS Problem Type ICD Code Onset Dates Problem Status W/U Status Risk SNOMED Code Notes Problem Tingling (R20.2) Active confirmed 37881 004 Problem Other chronic pain (G89.29) Active confirmed 58402376 Problem Enlarged prostate (N40.0) Active confirmed 293194407 Problem Hepatic steatosis (K76.0) Active confirmed 417347312 Problem Atherosclerosis (I70.90) Active confirmed 52185170 Problem Peripheral polyneuropathy (G62.9) Active confirmed 74571308 Problem Adenomatous polyp of colon, unspecified part of colon (D12.6) Active confirmed 100974071 Problem Well-controlled hypertension (I10) Active confirmed 708558096 VITAL SIGNS Blood pressure diastolic 72 mm Hg 01/27/2025 Height 68.0 in 01/27/2025 Blood pressure systolic 126 mm Hg 01/27/2025 Weight 166.2 lbs 01/27/2025 BMI 25.27 kg/m2 01/27/2025 Encounters Encounter Location Date Provider Diagnosis [place] [id number] 08/26/2024 NAM RUIZ [place] [id number] 09/01/2024 NAM RUIZ Hepatic steatosis K76.0 ; Screening for deficiency anemia Z13.0 ; Well-controlled hypertension I10 ; History of epistaxis Z87.898 and Prostate cancer screening Z12.5 [place] [id number] 09/02/2024 NAM RUIZ Hepatic steatosis K76.0 and Elevated glucose R73.09 [place] [id number] 09/28/2024 NAM RUIZ [place] [id number] 09/30/2024 NAM RUIZ [place] [id number] 12/17/2024 NAM RUIZ [place] [id number] 01/27/2025 NAM RUIZ Well-controlled hypertension I10 ; Tingling of both feet R20.2 ; Lightheadedness R42 ; Pain in right finger(s) M79.644 and Pain in left finger(s) M79.645 [place] [id number] 02/17/2025 EFRA PRAKASHACCO Tingling of both feet R20.2 and Hand tingling R20.2 [place] [id number] 02/24/2025 NAM RUIZ [facility] [address] [place] [place] [address] 02/25/2025 NAM RUIZ [facility] [address] [place] [address] 03/03/2025 NAM RUIZ Well-controlled hypertension I10 [facility] [address] [place] [address] 03/03/2025 NAM RUIZ Well-controlled hypertension I10 [facility] [address] [place] [address] 03/23/2025 NAM RUIZ Elevated glucose R73.09 ; Hepatic steatosis K76.0 and Peripheral polyneuropathy G62.9 [facility] [address] [place] [address] 03/25/2025 NAM RUIZ Elevated ferritin R79.89 [facility] [address] [place] [address] 03/25/2025 NAM RUIZ [facility] [address] [place] [place] [address] 03/26/2025 NAM RUIZ [facility] [address] [place] [address] 04/02/2025 NAM RUIZ [facility] [address] [place] [address] 04/03/2025 NAM RUIZ [facility] [address] [place] [place] [address] 04/05/2025 NAM RUIZ [facility] [address] [place] [address] 04/05/2025 NAM RUIZ Muscle cramping R25. 2 [facility] [address] [place] [address] 04/08/2025 NAM RUIZ [facility] [address] [place] [address] 04/09/2025 NAM RUIZ [facility] [address] [place] [address] 04/12/2025 NAM RUIZ [facility] [address] [place] [address] 04/12/2025 NAM RUIZ [facility] [address] [place] [address] 04/12/2025 NAM RUIZ [facility] [address] [place] [address] 04/14/2025 NAM RUIZ Pain in right hand M79.641 and Pain in left hand M79.642 [facility] [address] [place] [address] 04/16/2025 NAM RUIZ [facility] [address] [place] [address] 04/20/2025 NAM RUIZ [facility] [address] [place], [place] [phone] 04/21/2025 NAM RUIZ [place] [id number] 04/21/2025 NAM RUIZ [place] [id number] 04/21/2025 NAM RUIZ Other chronic pain G89.29 and Tingling R20.[address] [address] 04/21/2025 NAM RUIZ Pain in left arm M79.602 ; Pain in right arm M79.601 ; Pain in left leg M79.605 ; Pain in right leg M79.604 ; Arm numbness R20.0 ; Numbness of legs R20.0 and Facial numbness R20.[address] [address] 04/22/2025 NAM RUZI Positive Lyme diseas e serology R76.8 ASSESSMENTS Encounter Date Diagnosis Assessment [...] K76.0) 03/25/2025 Elevated ferritin (ICD-10 - R79.89) 04/05/2025 Muscle cramping (ICD-10 - R25.2) 04/14/2025 Pain in right hand (ICD-10 - M79.641) 04/21/2025 Other chronic pain (ICD-10 - G89.29) 04/21/2025 Pain in left arm (ICD-10 - M79.602) 04/22/2025 Positive Lyme disease serology (ICD-10 - R76.8) 09/01/2024 Well-controlled hypertension (ICD-10 - I10) 01/27/2025 Lightheadedness (ICD-10 - R42) he will use referral copy to cardiology to call for consult appt encounter > 30 minutes 04/14/2025 Pain in left hand (ICD-10 - M79.642) 04/21/2025 Tingling (ICD-10 - R20.2) 04/21/2025 Pain in right arm (ICD-10 - M79.601) 09/01/2024 History of epistaxis (ICD-10 - Z87.898) 01/27/2025 Pain in right finger(s) (ICD-10 - M79.644) encounter > 30 minutes 04/21/2025 Pain in left leg (ICD-10 - M79.605) 09/01/2024 Prostate cancer screening (ICD-10 - Z12.5) 01/27/2025 Pain in left finger(s) (ICD-10 - M79.645) encounter > 30 minutes 03/23/2025 Peripheral polyneuropathy (ICD-10 - G62.9) 04/21/2025 Pain in right leg (ICD-10 - M79.604) 04/21/2025 Arm numbness (ICD-10 - R20.0) 04/21/2025 Numbness of legs (ICD-10 - R20.0) 04/21/2025 Facial numbness (ICD-10 - R20.0) 09/01/2024 Other he continues f/u urology , 6 mos PLAN OF TREATMENT Pending Test Test Name Order Date MRI Cervical Spine without contrast 10/2024 MRI Lumbar Spine without contrast 2024 MRI Brain without contrast 04/21/2025 Future Test Test Name Order Date Tick-borne Disease Ab Profile-[id number] 10/2024 Next Appt Details Provider Name:NAM RUIZ, 04/29/2025 01:40:00 PM, [address] [place], [address], Insurance Providers Payer Name Payer Address Payer Phone Subscriber Number Group Number Insured Name Patient Relationship to Insured Coverage Start Date Coverage End Date [facility] [address] [place] [id number] LETI RIOS Self - patient is the insured MEDICAL (GENERAL) HISTORY Medical History History ICD Code kidney stones Mar 2024 high blood pressure BPH colon polyp Surgical History Surgery Date(Month/Year)
--- OUTSIDE RECORDS SUMMARY | 2025-04-26 16:42 | XMS_ITS | Clinical Summary ---
Author Organization [facility] Address [address] [place] [address] Care Team Providers Care Fly Tier Name Role Phone Unavailable Primary Care Provider [...]
--- OUTSIDE RECORDS SUMMARY | 2025-04-26 16:42 | XMS_ITS | Encounter Summary ---
Author Organization [facility] Address [address] [facility] [address] [address] [place] [phone] Phone Care Team Providers Care Soap Inspector Name Role Phone Grover Gregory MD Primary Care Provider [phone] Encounter Details Date Type Department Care Team ([facility] st Contact Info) Description 05/08/2019 Procedure Pass [facility] Endoscopy Admitting Dept Virtual Department [address] [place] [address] Social History Tobacco Use Types Packs/Day Years [...] on filedocumented in this encounter Care Teams Soap Inspector Relationship Specialty Start Date End Date Grover Gregory MD [address] [facility] [address] [place] [address] PCP - General Internal Medicine 04/29/19 documented as of this encounter Additional Source Comments The information contained in this document represents components of the legal health record. It is not the complete legal health record.[facility]
== END 2025-04-26 14:46 | disposition home or self-care (01) ==
LOC: HO.HSM 14:19
PROVIDERS: PCP Internal Medicine; Visit Provider Psychiatry & Neurology Neurology
DX: G62.9 Polyneuropathy, unspecified (principal)
CPT/HCPCS: 99214